=== PATIENT | female | born 1930 | race Caucasian/White ===

== ENCOUNTER 2016-10-15 19:03 | Inpatient (IN) | payer MEDICARE ==
[~2016-10-15] VITALS: Ht 157.4 cm; Wt 65.8 kg
[~2016-10-15 19:03] MED LIST: DARVOCET N 1001 TAB PO
[2016-10-15 19:08] VITALS: BP 172/77
[2016-10-15 22:08] VITALS: BP 168/72
[2016-10-15 22:39] LABS: BASO % 0.4 % (0.0-1.0); EOS # 0.2 10*3/uL (0.0-0.4); EOS % 3.6 % (1.0-4.0); HEMATOCRIT 41.1 % (37.0-47.0); HEMOGLOBIN 13.8 g/dl (12.0-16.0); LYMPH % 19.8 % (27.0-41.0); MEAN CELL VOLUME 91.5 fl (81.0-99.0); MEAN CORPUSCULAR HGB 30.7 pg (27.0-31.0); MEAN CORPUSCULAR HGB CONC 33.6 g/dl (33.0-37.0); MEAN PLATELET VOLUME 9.7 fl (9.6-12.3); MONO # 0.3 10*3/uL (0.1-1.0); MONO % 6.3 % (3.0-9.0); NEUT # 3.4 10*3/uL (2.3-7.9); NEUT % 69.5 % (47.0-73.0); PLATELET COUNT AUTOMATED 59 10*3/uL (130-400); RED BLOOD COUNT 4.49 10*6/uL (4.10-5.10); RED CELL DISTRI WIDTH 14.2 % (0-14.5)
[2016-10-15 22:54] LABS: ALBUMIN 3.1 gm/dl (3.1-4.5); BILIRUBIN, TOTAL 1.8 mg/dl (0.2-1.0); POTASSIUM 3.9 mmol/L (3.5-5.1); TOTAL PROTEIN 6.6 gm/dL (6.4-8.2)
[2016-10-16] VITALS (9 sets, daily range): BP systolic 74–168; BP diastolic 42–72
[2016-10-16] MEDS ORDERED: PROPRANOLOL HCL20 MG PO (00:10)
[2016-10-16] MEDS ORDERED: SPIRONOLACTONE50 M1 PO (00:10)
[2016-10-16] MEDS ORDERED: ALLOPURINOL300 MG PO (00:10)
[2016-10-16] MEDS ORDERED: RESTASIS 30 ML30 ML IO (00:12)
[2016-10-16] MEDS ORDERED: MAGOX 400400 MG PO (00:13)
[2016-10-16] MEDS ORDERED: OCUVITE1 TA1 PO (00:14)
[2016-10-16] MEDS ORDERED: VITAMIN D32000 UNIT PO (00:15)
[2016-10-16] MEDS ORDERED: IRON325 M1 PO (00:16)
[2016-10-16 06:32] LABS: HEMOGLOBIN A1c 5.1 % (4.8-5.6)
[2016-10-16 06:51] LABS: INTERNATIONAL NORM RATIO 1.3 (2.0-3.5); PROTHROMBIN TIME 13.9 SECONDS (9.0-12.4)
[2016-10-16 06:53] LABS: ALBUMIN 2.5 gm/dl (3.1-4.5); BILIRUBIN, TOTAL 1.6 mg/dl (0.2-1.0); MAGNESIUM 1.4 mg/dL (1.5-2.1); PHOSPHOROUS 2.9 mg/dL (2.5-4.9); POTASSIUM 3.8 mmol/L (3.5-5.1); THYROID STIM HORMONE (HS) 0.317 uIU/ml (0.358-4.75); TOTAL PROTEIN 5.3 gm/dL (6.4-8.2)
[2016-10-16 06:55] LABS: BASO % 0.6 % (0.0-1.0); EOS # 0.2 10*3/uL (0.0-0.4); EOS % 3.9 % (1.0-4.0); HEMATOCRIT 36.1 % (37.0-47.0); LYMPH # 1.2 10*3/uL (1.3-4.4); LYMPH % 23.9 % (27.0-41.0); MEAN CELL VOLUME 92.8 fl (81.0-99.0); MEAN CORPUSCULAR HGB 30.8 pg (27.0-31.0); MEAN CORPUSCULAR HGB CONC 33.2 g/dl (33.0-37.0); MEAN PLATELET VOLUME 11.6 fl (9.6-12.3); MONO # 0.5 10*3/uL (0.1-1.0); MONO % 10.5 % (3.0-9.0); NEUT % 60.9 % (47.0-73.0); PLATELET COUNT AUTOMATED 63 10*3/uL (130-400); RED BLOOD COUNT 3.89 10*6/uL (4.10-5.10); RED CELL DISTRI WIDTH 14.3 % (0-14.5); WHITE BLOOD COUNT 4.9 10*3/uL (4.8-10.8)
[2016-10-16 07:49] LABS: VITAMIN D, 25-HYDROXY 55.9 ng/mL (30-100)
[2016-10-16 07:50] LABS: FOLIC ACID 6.91 ng/mL (>5.38)
[2016-10-17] VITALS: BP 121/37
[2016-10-17 05:59] LABS: MAGNESIUM 1.8 mg/dL (1.5-2.1); PHOSPHOROUS 2.8 mg/dL (2.5-4.9); POTASSIUM 3.8 mmol/L (3.5-5.1)
[2016-10-17 06:07] LABS: BASO % 0.7 % (0.0-1.0); EOS # 0.2 10*3/uL (0.0-0.4); EOS % 5.5 % (1.0-4.0); HEMATOCRIT 35.1 % (37.0-47.0); HEMOGLOBIN 11.8 g/dl (12.0-16.0); LYMPH # 0.7 10*3/uL (1.3-4.4); LYMPH % 25.3 % (27.0-41.0); MEAN CELL VOLUME 92.4 fl (81.0-99.0); MEAN CORPUSCULAR HGB 31.1 pg (27.0-31.0); MEAN CORPUSCULAR HGB CONC 33.6 g/dl (33.0-37.0); MEAN PLATELET VOLUME 11.2 fl (9.6-12.3); MONO # 0.3 10*3/uL (0.1-1.0); MONO % 9.9 % (3.0-9.0); NEUT # 1.7 10*3/uL (2.3-7.9); NEUT % 58.3 % (47.0-73.0); PLATELET COUNT AUTOMATED 50 10*3/uL (130-400); WHITE BLOOD COUNT 2.9 10*3/uL (4.8-10.8)
[2016-10-17 08:00] VITALS: BP 124/50
[2016-10-17 14:00] VITALS: BP 122/60
[2016-10-17 16:19] VITALS: BP 128/47
[2016-10-17 20:23] VITALS: BP 143/53
[2016-10-18] VITALS: BP 150/87
[2016-10-18 06:37] LABS: BASO % 0.6 % (0.0-1.0); EOS # 0.2 10*3/uL (0.0-0.4); EOS % 4.8 % (1.0-4.0); HEMATOCRIT 35.2 % (37.0-47.0); HEMOGLOBIN 11.8 g/dl (12.0-16.0); LYMPH # 0.8 10*3/uL (1.3-4.4); LYMPH % 24.8 % (27.0-41.0); MEAN CELL VOLUME 92.1 fl (81.0-99.0); MEAN CORPUSCULAR HGB 30.9 pg (27.0-31.0); MEAN CORPUSCULAR HGB CONC 33.5 g/dl (33.0-37.0); MEAN PLATELET VOLUME 11.3 fl (9.6-12.3); MONO # 0.3 10*3/uL (0.1-1.0); MONO % 10.2 % (3.0-9.0); NEUT # 1.9 10*3/uL (2.3-7.9); NEUT % 59.3 % (47.0-73.0); PLATELET COUNT AUTOMATED 51 10*3/uL (130-400); RED BLOOD COUNT 3.82 10*6/uL (4.10-5.10); RED CELL DISTRI WIDTH 14.1 % (0-14.5); WHITE BLOOD COUNT 3.1 10*3/uL (4.8-10.8)
[2016-10-18 06:44] LABS: BILIRUBIN NEGATIVE (NEGATIVE); BLOOD TRACE-LYSED (NEGATIVE); CLARITY SL CLOUDY (CLEAR); COLOR YELLOW (YELLOW); GLUCOSE NEGATIVE (NEGATIVE); KETONE NEGATIVE (NEGATIVE); LEUKO ESTERASE TRACE (NEGATIVE); NITRITE NEGATIVE (NEGATIVE); PH 5.5 (5.0-9.0); PROTEIN NEGATIVE (NEGATIVE); SPECIFIC GRAVITY 1.025 (1.005-1.030); UROBILINOGEN 0.2 E.U./dl (0.2-1.0)
[2016-10-18 07:08] LABS: POTASSIUM 3.7 mmol/L (3.5-5.1)
[2016-10-18 08:00] VITALS: BP 150/54
[2016-10-18 09:13] LABS: BACTERIA 2+; CALCIUM OXALATE CRYSTALS TR; EPITHELIAL CELLS 20-30; WBC 21-30 wbc/hpf (0-5)
[2016-10-18 12:00] VITALS: BP 153/67
== END 2016-10-18 14:24 | disposition home health service (06) | DRG 682 ==
LOC: ED 19:03 → EDHOLD 21:52 → 5E 21:52
PROVIDERS: Hospitalist; Internal Medicine
DX: N17.0 Acute kidney failure with tubular necrosis (principal); E43 Unspecified severe protein-calorie malnutrition; R18.8 Other ascites; D69.6 Thrombocytopenia, unspecified; F03.90 Unspecified dementia, unspecified severity, without behavioral disturbance, psychotic disturbance, mood disturbance, and anxiety; E83.42 Hypomagnesemia; Z95.1 Presence of aortocoronary bypass graft; R10.2 Pelvic and perineal pain; R07.81 Pleurodynia; M15.9 Polyosteoarthritis, unspecified; F41.9 Anxiety disorder, unspecified; H04.123 Dry eye syndrome of bilateral lacrimal glands; S76.019A Strain of muscle, fascia and tendon of unspecified hip, initial encounter; R03.0 Elevated blood-pressure reading, without diagnosis of hypertension; N18.3 Chronic kidney disease, stage 3 (moderate); R27.0 Ataxia, unspecified; Z90.710 Acquired absence of both cervix and uterus; Z98.890 Other specified postprocedural states; Z86.010 Personal history of colon polyps; Z87.891 Personal history of nicotine dependence; Z82.49 Family history of ischemic heart disease and other diseases of the circulatory system; Z88.8 Allergy status to other drugs, medicaments and biological substances; Z79.899 Other long term (current) drug therapy; W18.39XA Other fall on same level, initial encounter; Y93.01 Activity, walking, marching and hiking; Y92.89 Other specified places as the place of occurrence of the external cause; Y99.8 Other external cause status; Z68.26 Body mass index [BMI] 26.0-26.9, adult

== ENCOUNTER → 2017-07-22 | Outpatient (CLI) | payer MEDICARE ==
[~2017-07-22] MED LIST changes: +ALLOPURINOL300 MG PO; +IRON325 M1 PO; +MAGOX 400400 MG PO; +OCUVITE1 TA1 PO; +PROPRANOLOL HCL20 MG PO; +RESTASIS 30 ML30 ML IO; +SPIRONOLACTONE50 M1 PO; +VITAMIN D32000 UNIT PO
[2017-07-22 10:40] LABS: EOS # 0.2 10*3/uL (0.0-0.4); EOS % 5.5 % (1.0-4.0); HEMATOCRIT 38.8 % (37.0-47.0); HEMOGLOBIN 12.9 g/dl (12.0-16.0); LYMPH # 0.8 10*3/uL (1.3-4.4); LYMPH % 20.6 % (27.0-41.0); MEAN CELL VOLUME 94.4 fl (81.0-99.0); MEAN CORPUSCULAR HGB 31.4 pg (27.0-31.0); MEAN CORPUSCULAR HGB CONC 33.2 g/dl (33.0-37.0); MEAN PLATELET VOLUME 10.6 fl (9.6-12.3); MONO # 0.4 10*3/uL (0.1-1.0); MONO % 9.4 % (3.0-9.0); NEUT # 2.6 10*3/uL (2.3-7.9); NEUT % 63.3 % (47.0-73.0); PLATELET COUNT AUTOMATED 71 10*3/uL (130-400); RED BLOOD COUNT 4.11 10*6/uL (4.10-5.10); RED CELL DISTRI WIDTH 14.6 % (0-14.5)
[2017-07-22 10:51] LABS: BILIRUBIN NEGATIVE (NEGATIVE); BLOOD 1+ (NEGATIVE); CLARITY SL CLOUDY (CLEAR); COLOR YELLOW (YELLOW); GLUCOSE NEGATIVE (NEGATIVE); KETONE NEGATIVE (NEGATIVE); LEUKO ESTERASE NEGATIVE (NEGATIVE); NITRITE NEGATIVE (NEGATIVE)
[2017-07-22 11:08] LABS: ALBUMIN 2.5 gm/dl (3.1-4.5); CREATININE 1.46 mg/dL (0.55-1.02); PHOSPHOROUS 2.7 mg/dL (2.5-4.9); POTASSIUM 4.2 mmol/L (3.5-5.1); URIC ACID 4.4 mg/dL (2.6-6.0)
[2017-07-22 11:09] LABS: TOTAL PROTEIN 6.2 gm/dL (6.4-8.2)
[2017-07-22 11:26] LABS: BACTERIA 1+; WBC 0-2 wbc/hpf (0-5)
== END | disposition home or self-care (01) ==
LOC: LAB 10:20
PROVIDERS: Internal Medicine Nephrology
DX: N18.3 Chronic kidney disease, stage 3 (moderate) (principal)

== ENCOUNTER 2018-06-29 09:53 | Inpatient (IN) | payer MEDICARE ==
[~2018-06-29] VITALS: Ht 152.4 cm; Wt 75.4 kg
--- NOTE | ~2018-06-29 | EKG ---
[place], [place] ELECTROCARDIOGRAM REPORT NAME: SIM ROGER UNIT #: [id number] ROOM: 409 DOCTOR: KLEVER DRAFT REPORT BIRTHDATE: [birth year] [facility] Test Date: 2018-06-29 Test Time: 10:29:40 Pat Name: SIM ROGER Department: Room: 409 Gender: F [employer] Inspector: Janelle Fajardo : 1930 Requested By: ESTEFANY MATHEW Order Number: [id number] Reading MD: Danyel Guardado MD Measurements Intervals Seibert Rate: 98 P: 117 KS: 206 QRS: -15 QRSD: 118 T: 24 QT: 363 QTc: 464 Interpretive Statements Sinus rhythm Incomplete right bundle branch block Baseline artifact makes interpretation difficult Electronically Signed On 06-29-2018 19:08:41 PDT by Danyel Guardado MD CM:EKGRPT:ELECTROCARDIOGRAM REPORT [id number] ESTEFANY NORTH DRAFT REPORT ESTEFANY MATHEW DO
[2018-06-29 09:55] VITALS: BP 128/66
[2018-06-29 10:32] LABS: BASO # 0.1 10*3/uL (0.0-0.1); BASO % 0.9 % (0.0-1.0); EOS # 0.1 10*3/uL (0.0-0.4); EOS % 1.1 % (1.0-4.0); HEMATOCRIT 38.1 % (37.0-47.0); HEMOGLOBIN 13.1 g/dl (12.0-16.0); LYMPH # 1.2 10*3/uL (1.3-4.4); LYMPH % 19.1 % (27.0-41.0); MEAN CELL VOLUME 90.7 fl (81.0-99.0); MEAN CORPUSCULAR HGB 31.2 pg (27.0-31.0); MEAN CORPUSCULAR HGB CONC 34.4 g/dl (33.0-37.0); MEAN PLATELET VOLUME 10.6 fl (9.6-12.3); MONO # 0.4 10*3/uL (0.1-1.0); MONO % 6.2 % (3.0-9.0); NEUT # 4.7 10*3/uL (2.3-7.9); NEUT % 72.2 % (47.0-73.0); PLATELET COUNT AUTOMATED 96 10*3/uL (130-400); RED CELL DISTRI WIDTH 15.9 % (0-14.5); WHITE BLOOD COUNT 6.5 10*3/uL (4.8-10.8)
[2018-06-29 10:41] LABS: INTERNATIONAL NORM RATIO 1.3 (2.0-3.5)
[2018-06-29 10:47] VITALS: BP 120/65
[2018-06-29 10:49] LABS: ALBUMIN 2.6 gm/dl (3.1-4.5); CREATININE 2.1 mg/dL (0.55-1.02); POTASSIUM 3.7 mmol/L (3.5-5.1); TOTAL PROTEIN 6.5 gm/dL (6.4-8.2); TROPONIN I 0.025 ng/ml (<0.045)
[2018-06-29 10:55] LABS: THYROID STIM HORMONE (HS) 4.02 uIU/ml (0.358-4.75)
[2018-06-29 12:42] LABS: COLOR YELLOW (YELLOW)
[2018-06-29 12:43] LABS: BILIRUBIN NEGATIVE (NEGATIVE); BLOOD NEGATIVE (NEGATIVE); CLARITY CLEAR (CLEAR); EPITHELIAL CELLS 0-2; GLUCOSE NEGATIVE (NEGATIVE); KETONE NEGATIVE (NEGATIVE); LEUKO ESTERASE NEGATIVE (NEGATIVE); NITRITE NEGATIVE (NEGATIVE); PH 7.5 (5.0-9.0); RBC 0-2 rbc/hpf (0-2); UROBILINOGEN 0.2 E.U./dl (0.2-1.0)
[2018-06-29 13:23] VITALS: BP 132/68
[2018-06-29] MEDS ORDERED: BUMETANIDE1 MG PO (15:13)
[2018-06-29 16:00] VITALS: BP 161/84
[2018-06-29 20:00] VITALS: BP 127/68
[2018-06-30 01:57] VITALS: BP 119/72
[2018-06-30 06:59] LABS: BASO % 0.2 % (0.0-1.0); EOS % 0.1 % (1.0-4.0); HEMATOCRIT 36.5 % (37.0-47.0); HEMOGLOBIN 12.2 g/dl (12.0-16.0); LYMPH # 0.9 10*3/uL (1.3-4.4); LYMPH % 9.3 % (27.0-41.0); MEAN CORPUSCULAR HGB 31.5 pg (27.0-31.0); MEAN CORPUSCULAR HGB CONC 33.4 g/dl (33.0-37.0); MEAN PLATELET VOLUME 10.9 fl (9.6-12.3); MONO # 0.8 10*3/uL (0.1-1.0); MONO % 7.9 % (3.0-9.0); NEUT # 8.1 10*3/uL (2.3-7.9); PLATELET COUNT AUTOMATED 88 10*3/uL (130-400); RED BLOOD COUNT 3.87 10*6/uL (4.10-5.10); RED CELL DISTRI WIDTH 16.4 % (0-14.5); WHITE BLOOD COUNT 9.9 10*3/uL (4.8-10.8)
[2018-06-30 07:01] LABS: MEAN CELL VOLUME 94.3 fl (81.0-99.0)
[2018-06-30 07:05] LABS: ALBUMIN 2.2 gm/dl (3.1-4.5); CREATININE 2.21 mg/dL (0.55-1.02); PHOSPHOROUS 4.4 mg/dL (2.5-4.9); POTASSIUM 3.8 mmol/L (3.5-5.1); TOTAL PROTEIN 5.9 gm/dL (6.4-8.2)
[2018-06-30 07:07] LABS: INTERNATIONAL NORM RATIO 1.4 (2.0-3.5)
[2018-06-30 07:11] LABS: THYROID STIM HORMONE (HS) 2.54 uIU/ml (0.358-4.75)
[2018-06-30 07:31] LABS: VITAMIN D, 25-HYDROXY 62.5 ng/mL (30-100)
[2018-06-30 08:00] VITALS: BP 115/57
[2018-06-30 08:27] LABS: FREE T4 1.66 ng/dl (0.76-1.46)
[2018-06-30 12:00] VITALS: BP 113/89
[2018-06-30 16:00] VITALS: BP 114/56
[2018-06-30 20:00] VITALS: BP 103/53
[2018-07-01] VITALS: BP 123/48
[2018-07-01 08:00] VITALS: BP 130/67
[2018-07-01 12:00] VITALS: BP 125/40
[2018-07-01 16:00] VITALS: BP 122/44
[2018-07-01 20:00] VITALS: BP 114/63
== END 2018-07-01 20:10 | disposition short-term general hospital (02) | DRG 535 ==
LOC: ED 09:53 → EDHOLD 13:16 → 4E 13:16
PROVIDERS: Internal Medicine
DX: S72.142A Displaced intertrochanteric fracture of left femur, initial encounter for closed fracture (principal); E43 Unspecified severe protein-calorie malnutrition; E87.2 Acidosis; E87.1 Hypo-osmolality and hyponatremia; N17.9 Acute kidney failure, unspecified; I85.00 Esophageal varices without bleeding; W18.39XA Other fall on same level, initial encounter; N18.3 Chronic kidney disease, stage 3 (moderate); K57.90 Diverticulosis of intestine, part unspecified, without perforation or abscess without bleeding; E80.6 Other disorders of bilirubin metabolism; R94.4 Abnormal results of kidney function studies; R79.89 Other specified abnormal findings of blood chemistry; M16.0 Bilateral primary osteoarthritis of hip; M17.12 Unilateral primary osteoarthritis, left knee; M17.11 Unilateral primary osteoarthritis, right knee; M47.819 Spondylosis without myelopathy or radiculopathy, site unspecified; R73.9 Hyperglycemia, unspecified; E87.8 Other disorders of electrolyte and fluid balance, not elsewhere classified; E83.42 Hypomagnesemia; K72.10 Chronic hepatic failure without coma; D69.6 Thrombocytopenia, unspecified; F03.90 Unspecified dementia, unspecified severity, without behavioral disturbance, psychotic disturbance, mood disturbance, and anxiety; M85.80 Other specified disorders of bone density and structure, unspecified site; E88.09 Other disorders of plasma-protein metabolism, not elsewhere classified; F41.9 Anxiety disorder, unspecified; Z95.1 Presence of aortocoronary bypass graft; Z90.710 Acquired absence of both cervix and uterus; Z98.891 History of uterine scar from previous surgery; Z90.49 Acquired absence of other specified parts of digestive tract; Z83.3 Family history of diabetes mellitus; Z82.49 Family history of ischemic heart disease and other diseases of the circulatory system; Y93.89 Activity, other specified; Z79.899 Other long term (current) drug therapy; Y92.89 Other specified places as the place of occurrence of the external cause; Y99.8 Other external cause status; Z87.891 Personal history of nicotine dependence; Z68.32 Body mass index [BMI] 32.0-32.9, adult

== ENCOUNTER 2018-07-15 14:25 | Emergency (ER) | payer MEDICARE ==
[~2018-07-15] VITALS: Ht 152.4 cm; Wt 70.3 kg
[~2018-07-15 14:25] MED LIST changes: +BUMETANIDE1 MG PO
[2018-07-15 15:14] LABS: BASO % 0.2 % (0.0-1.0); EOS # 0.3 10*3/uL (0.0-0.4); EOS % 2.9 % (1.0-4.0); HEMOGLOBIN 9.3 g/dl (12.0-16.0); LYMPH # 0.6 10*3/uL (1.3-4.4); LYMPH % 5.8 % (27.0-41.0); MEAN CELL VOLUME 105.1 fl (81.0-99.0); MEAN CORPUSCULAR HGB 33.7 pg (27.0-31.0); MEAN CORPUSCULAR HGB CONC 32.1 g/dl (33.0-37.0); MEAN PLATELET VOLUME 11.1 fl (9.6-12.3); MONO # 0.5 10*3/uL (0.1-1.0); MONO % 5.2 % (3.0-9.0); NEUT # 8.6 10*3/uL (2.3-7.9); NEUT % 85.2 % (47.0-73.0); PLATELET COUNT AUTOMATED 87 10*3/uL (130-400); RED BLOOD COUNT 2.76 10*6/uL (4.10-5.10); WHITE BLOOD COUNT 10.1 10*3/uL (4.8-10.8)
[2018-07-15 15:29] LABS: ALBUMIN 2.2 gm/dl (3.1-4.5); CREATININE 1.84 mg/dL (0.55-1.02); POTASSIUM 5.1 mmol/L (3.5-5.1); TOTAL PROTEIN 5.6 gm/dL (6.4-8.2)
== END 2018-07-15 15:59 ==
LOC: ED 14:25
PROVIDERS: Emergency Medicine
DX: E86.0 Dehydration (principal); N18.3 Chronic kidney disease, stage 3 (moderate); M85.80 Other specified disorders of bone density and structure, unspecified site; M13.862 Other specified arthritis, left knee; M13.861 Other specified arthritis, right knee; Z48.01 Encounter for change or removal of surgical wound dressing; Z79.899 Other long term (current) drug therapy; Z87.891 Personal history of nicotine dependence; Z90.710 Acquired absence of both cervix and uterus; Z90.49 Acquired absence of other specified parts of digestive tract; Z98.890 Other specified postprocedural states; Z95.1 Presence of aortocoronary bypass graft